=== PATIENT | female | born 1970 ===

== ENCOUNTER 2017-02-28 16:11 | Emergency (ER) | payer OTHER ==
[2017-02-28 16:54] VITALS: BP 135/69; PULSE 89; RESP 16; TEMP 98.2; O2SAT 97
--- NOTE | 2017-02-28 17:14 | ED PDOC ---
Upper Extremity Pain/Injury Time Seen by Provider: 02/28/17 16:56 Chief Complaint (Nursing): Upper Extremity Problem/Injury Chief Complaint (Provider): Right wrist and forearm pain History Per: Patient History/Exam Limitations: no limitations Onset/Duration Of Symptoms: Hrs Current Symptoms Are (Timing): Still Present Additional Complaint(s): Patient is a 46 y/o female with no significant past medical history presenting to the emergency department for right wrist pain status post fall this morning. Reports pain extending from her right forearm to her wrist. Denies loss of consciousness, syncope, pain elsewhere or other complaints. PCP: none provided. Past Medical History Reviewed: Historical Data Vital Signs: Last Vital Signs Temp 98.2 F 02/28/17 16:52 Pulse 89 02/28/17 16:52 Resp 16 02/28/17 16:52 BP 135/69 02/28/17 16:52 Pulse Ox 97 02/28/17 16:52 - Medical History PMH: No Chronic Diseases - Family History Family History: States: Unknown Family Hx - Home Medications Home Medications: Ambulatory Orders Medication Instructions Recorded Acetaminophen with Codeine 1 tab PO TID #15 tab 02/28/17 [Tylenol with Codeine No. 3 300 mg-30 mg] Ibuprofen [Motrin] 400 mg PO Q6 #30 tab 02/28/17 - Allergies Allergies/Adverse Reactions: Allergies Allergy/AdvReac Type Severity Reaction Status Date / Time No Known Allergies Allergy Verified 02/28/17 16:54 Review of Systems ROS Statement: Except As Marked, All Systems Reviewed And Found Negative Musculoskeletal: Positive for: Arm Pain (right forearm), Hand Pain (right wrist) Neurological: Negative for: Dizziness, Other (loss of consciouness, syncope) Physical Exam - Reviewed Nursing Documentation Reviewed: Yes Vital Signs Reviewed: Yes - Physical Exam Appears: Positive for: Well, Non-toxic, No Acute Distress Head Exam: Positive for: ATRAUMATIC, NORMAL INSPECTION, NORMOCEPHALIC Skin: Positive for: Normal Color, Warm, Dry Eye Exam: Positive for: Normal appearance Neck: Positive for: Normal Cardiovascular/Chest: Positive for: Regular Rate, Rhythm Respiratory: Negative for: Accessory Muscle Use, Respiratory Distress Pulses-Radial (R): 2+ Extremity: Positive for: Normal ROM (right wrist with pain), Tenderness (right forearm), Capillary Refill (normal), Swelling (right hand and wrist), Other ( neurovascular function intact). Negative for: Deformity Neurologic/Psych: Positive for: Alert, Oriented (x3) - ECG O2 Sat by Pulse Oximetry: 97 (RA) Pulse Ox Interpretation: Normal - Radiology X-Ray: Interpreted by Me (communitued fracture to distal radius. ) - Progress ED Course And Treament: zacarias hsieh consulted. Medical Decision Making Medical Decision Making: Time: 17:09 Initial impression: Right wrist fracture vs. sprain Initial plan: Tylenol 650 mg PO Right Wrist [id number]. call placed to [facility]. pt place in sugar tong splint. with f.u with orthopedics. ~ Scribe Attestation: Documented by Beverley Kate, acting as a scribe for [facility] [place]. Provider Scribe Attestation: All medical record entries made by the Scribe were at my direction and personally dictated by me. I have reviewed the chart and agree that the record accurately reflects my personal performance of the history, physical exam, medical decision making, and the department course for this patient. I have also personally directed, reviewed, and agree with the discharge instructions and disposition. Disposition - Clinical Impression Clinical Impression: Fracture of wrist - Disposition Referrals: Maurizio Bowens MD [Staff Provider] - Disposition: Routine/Home Disposition Time: 18:47 Condition: STABLE Prescriptions: Acetaminophen with Codeine [Tylenol with Codeine No. 3 300 mg-30 mg] 1 tab PO TID #15 tab Ibuprofen [Motrin] 400 mg PO Q6 #30 tab Instructions: Wrist Fracture in Adults (ED) Forms: [employer] (Croatian) Print Language: UKRAINIAN
--- NOTE | 2017-02-28 18:17 | RAD ---
PROCEDURE: Right Wrist Radiographs. HISTORY: injury COMPARISON: None. FINDINGS: BONES: Fracture of the ulnar styloid. Fracture of the distal radius extending to the articular surface. No appreciable angulation or impaction. JOINTS: Normal. No dislocation. SOFT TISSUES: Soft tissue swelling attests to the acuity of the fracture. OTHER FINDINGS: None. IMPRESSION: Acute fractures distal radius and ulna/ ulnar styloid. She
== END 2017-02-28 19:15 | disposition home or self-care (01) ==
LOC: H.ER 16:11
DX: S62.101A Fracture of unspecified carpal bone, right wrist, initial encounter for closed fracture (principal); W19.XXXA Unspecified fall, initial encounter